=== PATIENT | female | born 1955 | race Caucasian/White ===

== ENCOUNTER 2024-05-12 12:21 | Emergency (ER) | payer MEDICARE ==
[2024-05-12] MEDS ORDERED: Proparacaine 0.5% Ophth Soln 15 ML Bottle EYELF ONE (12:55)
== END 2024-05-12 13:08 | disposition home or self-care (01) ==
LOC: JP.ED 12:21
DX: T65.91XA Toxic effect of unspecified substance, accidental (unintentional), initial encounter (principal)
CPT/HCPCS: 99283

== ENCOUNTER 2025-08-30 06:30 | Day surgery (SDC) | payer MEDICARE ==
[2025-08-30] MEDS: Lactated Ringers 1,000 ML IV SCH (07:37)
[2025-08-30] MEDS ORDERED: Propofol 200 MG/20 ML SDV ONE ×2 (07:39→08:01)
[2025-08-30] MEDS ORDERED: fentaNYL 100 MCG/2 ML SDV ONE (07:39)
== END 2025-08-30 09:46 | disposition home or self-care (01) ==
LOC: JP.SDS 06:30
PROVIDERS: ATTEND Surgery
DX: Z12.11 Encounter for screening for malignant neoplasm of colon (principal); D12.2 Benign neoplasm of ascending colon; D12.4 Benign neoplasm of descending colon; D12.3 Benign neoplasm of transverse colon; K57.30 Diverticulosis of large intestine without perforation or abscess without bleeding; K64.8 Other hemorrhoids; Z88.1 Allergy status to other antibiotic agents; Z88.8 Allergy status to other drugs, medicaments and biological substances
CPT/HCPCS: 00811-QZ; J2704; J3010; J7120